=== PATIENT | female | born 1960 | race Caucasian/White ===

== ENCOUNTER 2016-12-03 16:36 | Emergency (ER) | payer MEDICAID ==
--- NOTE | 2016-12-07 13:23 | ER ---
ADMIT: 12/03/2016 RM/LOC: ER [facility] MR#: [id number] [facility] [address] [place], [place] [id number] MINERVA, CECILIA [address] [address] Emergency Room Report SEX: F AGE: 55 : 1960 DATE: 12/03/2016 ADDENDUM: This patient comes into the ER because she has had pain in her low back going down her left butt cheek to the back of her leg for 4 years. It flares up on and off and now it is flaring up. She usually takes an anti- inflammatory medication, and she is not sure the name. On physical exam, she does have pain consistent with sciatica. I wrote a prescription for ibuprofen 600 mg and also for tramadol to take at night to help her sleep. Please see my T-sheet. UNRULY Jeong / Tu Boyle MD / joyce JOB #: [id number] CC: Tu Boyle MD, Attending Physician Lamine Tineo MD, Family Physician
== END 2016-12-03 17:35 | disposition home or self-care (01) ==
LOC: ER 16:36
DX: M54.32 Sciatica, left side (principal); I10 Essential (primary) hypertension; Z88.5 Allergy status to narcotic agent; Z79.899 Other long term (current) drug therapy